=== PATIENT | female | born 1980 | race Caucasian/White ===

== ENCOUNTER → 2017-09-05 | Outpatient (CLI) | payer MEDICAID | LOC: OD 15:31 | PROVIDERS: ATTEND Midwife | DX: O36.80X0 Pregnancy with inconclusive fetal viability, not applicable or unspecified (principal) | CPT/HCPCS: 36415; 84702 ==

== ENCOUNTER 2019-09-21 18:44 | Inpatient (IN) | payer MEDICAID ==
[2019-09-21 19:41] LABS: APPEARANCE,URINE CLEAR; BILIRUBIN,URINE NEGATIVE (NEGATIVE); COLOR,URINE YELLOW; GLUCOSE, URINE NEGATIVE (NEGATIVE); KETONES,URINE NEGATIVE (NEGATIVE); LEUKOCYTE ESTERASE,URINE NEGATIVE (NEGATIVE); NITRITE,URINE NEGATIVE (NEGATIVE); PROTEIN,URINE NEGATIVE (NEGATIVE); URINE SPECIFIC GRAVITY 1.014; UROBILINOGEN,URINE NEGATIVE mg/dL (<2.0)
[2019-09-21 19:55] LABS: URINE AMPHETAMINES SCREEN NEGATIVE; URINE BARBITURATES SCREEN NEGATIVE; URINE BENZODIAZEPINES SCREEN NEGATIVE; URINE COCAINE SCREEN NEGATIVE; URINE MARIJUANA (THC) SCREEN NEGATIVE; URINE METHADONE SCREEN NEGATIVE; URINE PHENCYCLIDINE SCREEN NEGATIVE
[2019-09-21] MEDS ORDERED: RINGERS SOLUTION,LACTATED 1,000 ML IV PRN (20:00)
[2019-09-21] MEDS ORDERED: FENTANYL/BUPIVACAINE/NS/PF 300 MCG/150 ML RTUINJ EPI ONE (20:31)
[2019-09-21] MEDS ORDERED: MISOPROSTOL 0.2 MG TABLET ONE (20:31)
[2019-09-21] MEDS ORDERED: EPHEDRINE SULFATE INJ 50 MG/1 ML AMPULE ONE (20:31)
[2019-09-21] MEDS ORDERED: LIDOCAINE 1% INJ-PF (10 MG/ML) 30 ML SDV ONE (20:31)
[2019-09-21] MEDS ORDERED: OXYTOCIN 10 UNIT/ML VIAL ONE (20:31)
[2019-09-21] MEDS ORDERED: BUPIVACAINE HCL 0.25 % INJ/PF (2.5 MG/1 ML) 30 ML VIAL ONE (20:32)
[2019-09-21] MEDS ORDERED: OXYTOCIN/NORMAL SALINE 20 UNIT/1,000 ML RTUINJ ONE (20:32)
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
[2019-09-21 20:40] LABS: ABSOLUTE BASOPHILS # (AUTO) 0.1 10^3/uL (0.0-0.2); ABSOLUTE EOSINOPHILS # (AUTO) 0.1 10^3/uL (0.0-0.6); ABSOLUTE LYMPHOCYTES (AUTO) 1.8 10^3/uL (0.5-4.7); ABSOLUTE MONOCYTES (AUTO) 0.7 10^3/uL (0.1-1.4); ABSOLUTE NEUT (AUTO) 11.3 10^3/uL (1.7-8.2); BASOPHILS % (AUTO) 0.4 % (0-2); EOSINOPHILS % (AUTO) 0.5 % (0-6); HEMATOCRIT 30.9 % (36.0-47.0); LYMPHOCYTES % (AUTO) 12.7 % (13-45); MEAN CORPUSCULAR HEMOGLOBIN 30.5 pg (27.0-33.4); MEAN CORPUSCULAR HGB CONC 35.7 g/dL (32.0-36.0); MEAN CORPUSCULAR VOLUME 86 fl (80-97); MONOCYTES % (AUTO) 5.3 % (3-13); PLATELET COUNT 200 10^3/uL (150-450); RED BLOOD COUNT 3.62 10^6/uL (3.72-5.28); RED CELL DISTRIBUTION WIDTH 15.4 % (11.5-14.0); SEGMENTED NEUTROPHILS % (AUTO) 81.1 % (42-78); TOTAL CELLS COUNTED % (AUTO) 100 %; WHITE BLOOD COUNT 13.9 10^3/uL (4.0-10.5)
[2019-09-21] MEDS ORDERED: ACETAMINOPHEN 650 MG SUPP.RECT PR PRN (22:20)
[2019-09-21] MEDS ORDERED: PROMETHAZINE HCL 25 MG SUPP.RECT PR PRN (22:20)
[2019-09-21] MEDS ORDERED: PSEUDOEPHEDRINE HCL 30 MG TABLET PO PRN (22:20)
[2019-09-21] MEDS ORDERED: PROMETHAZINE HCL INJ 25 MG/1 ML VIAL IV PRN (22:20)
[2019-09-21] MEDS ORDERED: MEASLES,MUMPS&RUBELLA VACC/PF 0.5 ML VIAL SUBCUT PRN (22:20)
[2019-09-21] MEDS ORDERED: GLYCERIN/WITCH HAZEL LEAF 1 EACH MED..WIPE TP PRN (22:20)
[2019-09-21] MEDS ORDERED: NA PHOS,M-B/NA PHOS,DI-BA (ADULT) 133 ML ENEMA PR PRN (22:20)
[2019-09-21] MEDS ORDERED: PROMETHAZINE HCL 25 MG TABLET PO PRN (22:20)
[2019-09-21] MEDS ORDERED: DIPH/PERTUSS(ACELL)/TETANUS VAC/PF 0.5 ML SYR (>=10YO) IM PRN (22:20)
[2019-09-21] MEDS ORDERED: DIPHENHYDRAMINE HCL 25 MG CAPSULE PO PRN (22:20)
[2019-09-21] MEDS ORDERED: ZOLPIDEM TARTRATE 5 MG TABLET PO PRN (22:20)
[2019-09-21] MEDS ORDERED: DIBUCAINE 1% OINTMENT 28 GM TP PRN (22:20)
[2019-09-21] MEDS ORDERED: OXYTOCIN/NORMAL SALINE 20 UNIT/1,000 ML RTUINJ IV PRN (22:20)
[2019-09-21] MEDS ORDERED: ACETAMINOPHEN WITH CODEINE #3 TABLET PO PRN (22:20)
[2019-09-21] MEDS ORDERED: MAGNESIUM HYDROXIDE SUSP 30 ML UDCUP PO PRN (22:20)
[2019-09-21] MEDS ORDERED: FAMOTIDINE 20 MG TABLET PO ONE (23:00)
[2019-09-22] MEDS: BENZOCAINE/MENTHOL AEROSOL SPRAY 56 ML TOP PRN ×2 (03:52→09:24)
[2019-09-22] MEDS: IBUPROFEN 800 MG TABLET PO SCH ×3 (05:37→22:21)
[2019-09-22 06:56] LABS: HEMATOCRIT 27.3 % (36.0-47.0); HEMOGLOBIN 9.5 g/dL (12.0-15.5); MEAN CORPUSCULAR HEMOGLOBIN 29.7 pg (27.0-33.4); MEAN CORPUSCULAR HGB CONC 34.8 g/dL (32.0-36.0); MEAN CORPUSCULAR VOLUME 85 fl (80-97); PLATELET COUNT 228 10^3/uL (150-450); RED CELL DISTRIBUTION WIDTH 15.7 % (11.5-14.0); WHITE BLOOD COUNT 20.3 10^3/uL (4.0-10.5)
[2019-09-22] MEDS: SENNOSIDES/DOCUSATE 8.6-50 MG 1 EACH TABLET PO SCH (09:17)
[2019-09-22] MEDS: DOCUSATE SODIUM 100 MG CAPSULE PO SCH ×2 (09:17→17:33)
[2019-09-22] MEDS: PRENATAL VITAMIN W DHA CAPSULE PO SCH (09:18)
[2019-09-22] MEDS: FERROUS SULFATE 325 MG TABLET PO SCH ×2 (09:18→17:33)
[2019-09-22] MEDS: FAMOTIDINE 20 MG TABLET PO SCH ×2 (09:18→22:21)
--- NOTE | 2019-09-22 11:05 | PDOC PROGRESS REPORT ---
Subjective-OB Progress Note for:: 09/22/19 Subjective: reports bleeding slowing, pain controlled with current meds. denies needs. Physical Exam (OB) Vital Signs: Temp Pulse Resp BP Pulse Ox 97.8 F 108 H 16 133/80 H 100 09/22/19 07:51 09/22/19 07:51 09/22/19 07:51 09/22/19 07:51 09/22/19 07:51 Intake & Output 09/21/19 09/22/19 09/23/19 06:59 06:59 06:59 Intake Total 480 Balance 480 Weight 93 kg - Abdomen Description: Soft Hernia Present: No Fundal Description: Firm, Midline Fundal Height: u/u - u/2 - Abdominal Distension: No distension Tenderness: Nontender - Extremities Lower extremities: Bradford's sign - neg Calf: Normal, Nontender Objective-Diagnostic Laboratory: 09/22/19 06:31 09/21/19 09/21/19 09/21/19 18:55 20:20 20:20 WBC 13.9 H RBC 3.62 L Hgb 11.0 L Hct 30.9 L MCV 86 MCH 30.5 MCHC 35.7 RDW 15.4 H Plt Count 200 Seg Neutrophils % 81.1 H Urine Color YELLOW Urine Appearance CLEAR Urine pH 6.0 Ur Specific [place] 1.014 Urine Protein NEGATIVE Urine Glucose (UA) NEGATIVE Urine Ketones NEGATIVE Urine Blood MODERATE H Urine Nitrite NEGATIVE Ur Leukocyte Esterase NEGATIVE Blood Type O POSITIVE Antibody Screen NEGATIVE 09/22/19 06:31 WBC 20.3 H RBC 3.20 L Hgb 9.5 L Hct 27.3 L MCV 85 MCH 29.7 MCHC 34.8 RDW 15.7 H Plt Count 228 Seg Neutrophils % Urine Color Urine Appearance Urine pH Ur Specific [place] Urine Protein Urine Glucose (UA) Urine Ketones Urine Blood Urine Nitrite Ur Leukocyte Esterase Blood Type Antibody Screen Assessment and Plan(PN) - Time Spent with Patient Time with patient: Less than 15 minutes Medications reviewed and adjusted accordingly: Yes - Disposition Within: within 24 hours
[2019-09-22] MEDS: ACETAMINOPHEN WITH CODEINE #3 TABLET PO PRN ×2 (11:14→17:38)
[2019-09-23] MEDS: IBUPROFEN 800 MG TABLET PO SCH ×2 (06:28→13:13)
[2019-09-23 06:45] LABS: ABSOLUTE BASOPHILS # (AUTO) 0.1 10^3/uL (0.0-0.2); ABSOLUTE EOSINOPHILS # (AUTO) 0.2 10^3/uL (0.0-0.6); ABSOLUTE LYMPHOCYTES (AUTO) 2.5 10^3/uL (0.5-4.7); ABSOLUTE MONOCYTES (AUTO) 0.7 10^3/uL (0.1-1.4); ABSOLUTE NEUT (AUTO) 9.1 10^3/uL (1.7-8.2); BASOPHILS % (AUTO) 0.7 % (0-2); EOSINOPHILS % (AUTO) 1.8 % (0-6); HEMOGLOBIN 8.7 g/dL (12.0-15.5); LYMPHOCYTES % (AUTO) 19.6 % (13-45); MEAN CORPUSCULAR HEMOGLOBIN 29.8 pg (27.0-33.4); MEAN CORPUSCULAR VOLUME 85 fl (80-97); MONOCYTES % (AUTO) 5.2 % (3-13); PLATELET COUNT 217 10^3/uL (150-450); RED BLOOD COUNT 2.93 10^6/uL (3.72-5.28); RED CELL DISTRIBUTION WIDTH 15.5 % (11.5-14.0); SEGMENTED NEUTROPHILS % (AUTO) 72.7 % (42-78); TOTAL CELLS COUNTED % (AUTO) 100 %; WHITE BLOOD COUNT 12.5 10^3/uL (4.0-10.5)
[2019-09-23] MEDS: PRENATAL VITAMIN W DHA CAPSULE PO SCH (11:18)
[2019-09-23] MEDS: SENNOSIDES/DOCUSATE 8.6-50 MG 1 EACH TABLET PO SCH (11:19)
[2019-09-23] MEDS: FAMOTIDINE 20 MG TABLET PO SCH (11:19)
[2019-09-23] MEDS: DOCUSATE SODIUM 100 MG CAPSULE PO SCH (11:19)
[2019-09-23] MEDS: FERROUS SULFATE 325 MG TABLET PO SCH (11:23)
--- NOTE | 2019-09-23 12:34 | PDOC DISCHARGE SUMMARY ---
Impression - Admit/DC Date/PCP Admission Date/Primary Care Provider: 09/21/19 20:07 FANNIE WING MD Discharge Date: 09/23/19 - Discharge Diagnosis (1) Acute blood loss anemia Is this a current diagnosis for this admission?: Yes (2) Current smoker Is this a current diagnosis for this admission?: Yes (3) Perineal laceration during delivery, delivered Is this a current diagnosis for this admission?: Yes (4) Delivery normal Is this a current diagnosis for this admission?: Yes - Assessment Summary: 38yo G5 now P4 s/p ppd2 stable and ready for discharge. Understands warning s/s and reasons to rtc/[facility] - Additional Information Resuscitation Status: Full Code Discharge Diet: As Tolerated, Regular Discharge Activity: Activity As Tolerated, Balance Activity w/Rest, No Lifting Over 10 Pounds, Pelvic Rest, No tub bath, Walk Frequently Referrals: FANNIE WING MD [Primary Care Provider] - Prescriptions: Ibuprofen [Motrin 800 mg Tablet] 800 mg PO Q8HP PRN #20 tablet PRN Reason: Docusate Sodium [Colace 100 mg Capsule] 100 mg PO BID #60 capsule Ferrous Sulfate [Feosol 325 mg Tablet] 325 mg PO BID #60 tablet Home Medications: Vit/Iron Fum/Folic AC [ Tablet] 1 each PO DAILY 01/09/16 Ferrous Sulfate [Feosol 325 mg Tablet] 325 mg PO BID #60 tablet 02/14/16 Albuterol Sulfate [Ventolin Hfa 8 gm Mdi (1 Mdi/ER Disp)] 8 gm NASL PRN PRN 09/21/19 Docusate Sodium [Colace 100 mg Capsule] 100 mg PO BID #60 capsule 09/23/19 Ferrous Sulfate [Feosol 325 mg Tablet] 325 mg PO BID #60 tablet 09/23/19 Ibuprofen [Motrin 800 mg Tablet] 800 mg PO Q8HP PRN #20 tablet 09/23/19 Vit/Dha [ Multi + Dha Capsule] 1 cap PO DAILY capsule 09/23/19 Results Laboratory Results: WBC 12.5 10^3/uL (4.0-10.5) H 09/23/19 06:13 RBC 2.93 10^6/uL (3.72-5.28) L 09/23/19 06:13 Hgb 8.7 g/dL (12.0-15.5) L 09/23/19 06:13 Hct 25.0 % (36.0-47.0) L 09/23/19 06:13 MCV 85 fl (80-97) 09/23/19 06:13 MCH 29.8 pg (27.0-33.4) 09/23/19 06:13 MCHC 35.0 g/dL (32.0-36.0) 09/23/19 06:13 RDW 15.5 % (11.5-14.0) H 09/23/19 06:13 Plt Count 217 10^3/uL (150-450) 09/23/19 06:13 Lymph % (Auto) 19.6 % (13-45) 09/23/19 06:13 [place] % (Auto) 5.2 % (3-13) 09/23/19 06:13 Eos % (Auto) 1.8 % (0-6) 09/23/19 06:13 Baso % (Auto) 0.7 % (0-2) 09/23/19 06:13 Absolute Neuts (auto) 9.1 10^3/uL (1.7-8.2) H 09/23/19 06:13 Absolute Lymphs (auto) 2.5 10^3/uL (0.5-4.7) 09/23/19 06:13 Absolute Monos (auto) 0.7 10^3/uL (0.1-1.4) 09/23/19 06:13 Absolute Eos (auto) 0.2 10^3/uL (0.0-0.6) 09/23/19 06:13 Absolute Basos (auto) 0.1 10^3/uL (0.0-0.2) 09/23/19 06:13 Seg Neutrophils % 72.7 % (42-78) 09/23/19 06:13 Urine Color YELLOW 09/21/19 18:55 Urine Appearance CLEAR 09/21/19 18:55 Urine pH 6.0 (5.0-9.0) 09/21/19 18:55 Ur Specific [place] 1.014 09/21/19 18:55 Urine Protein NEGATIVE mg/dL (NEGATIVE) 09/21/19 18:55 Urine Glucose (UA) NEGATIVE mg/dL (NEGATIVE) 09/21/19 18:55 Urine Ketones NEGATIVE mg/dL (NEGATIVE) 09/21/19 18:55 Urine Blood MODERATE (NEGATIVE) H 09/21/19 18:55 Urine Nitrite NEGATIVE (NEGATIVE) 09/21/19 18:55 Urine Bilirubin NEGATIVE (NEGATIVE) 09/21/19 18:55 Urine Urobilinogen NEGATIVE mg/dL (<2.0) 09/21/19 18:55 Ur Leukocyte Esterase NEGATIVE (NEGATIVE) 09/21/19 18:55 Urine Ascorbic Acid NEGATIVE (NEGATIVE) 09/21/19 18:55 Membranes Rupture POSITIVE (NEGATIVE) H 09/21/19 19:17 Urine Opiates Screen NEGATIVE 09/21/19 18:55 Urine Methadone Screen NEGATIVE 09/21/19 18:55 Ur Barbiturates Screen NEGATIVE 09/21/19 18:55 Ur Phencyclidine Scrn NEGATIVE 09/21/19 18:55 Ur Amphetamines Screen NEGATIVE 09/21/19 18:55 U Benzodiazepines Scrn NEGATIVE 09/21/19 18:55 Urine Cocaine Screen NEGATIVE 09/21/19 18:55 U Marijuana (THC) Screen NEGATIVE 09/21/19 18:55 RPR NONREACTIVE (NONREACTIVE) 09/21/19 20:20 Blood Type O POSITIVE 09/21/19 20:20 Antibody Screen NEGATIVE 09/21/19 20:20
[2019-09-23 12:44] VITALS: BP 133/80
[2019-09-23] MEDS: BENZOCAINE/MENTHOL AEROSOL SPRAY 56 ML TOP PRN (13:13)
--- NOTE | 2019-09-24 15:05 | Delivery Summary ---
Del Sum A-C Datetime Report Generated by CPN: 09/24/2019 15:05 DELIVERY PERSONNEL DELIVERY PERSONNEL: [id number] Delivery Doctor:: Lynn Lundberg MD Labor and Delivery Nurse:: Lindsey Gallo RN Metallurgical Technician/BASKETBALL SCOUT: Rosalie Green, ST MATERNAL INFORMATION Delivery Anesthesia: Epidural Medications After Delivery: Pitocin Drip 20 Units/1000ml NSS Delivery QBL: 300 Maternal Complications: None Provider Comments: Called to patients room complete and +2 station. Patient pushed through a few contractions and delivered a viable male infant. After delivery of the head, a nuchal cord x 1 was noted and not able to be reduced. She delivered through without difficulty. Infant vigorous at delivery and cord clamping delayed for approximately 30 seconds. Infant to mothers chest and both stable. LABOR SUMMARY EDC: 09/25/2019 00:00 No. Babies in Womb: 1 Attempted: No Labor Anesthesia: Epidural LABOR INFORMATION Reason for Induction: Not Applicable Onset of Labor: 09/21/2019 16:00 Complete Dilatation: 09/21/2019 22:44 Oxytocin: N/A Group B Beta Strep: negative Antibiotics # of Doses: 0 Antibiotics Time of Last Dose: N/A Name of Antibiotic Given: N/A Steroids Given: None Reason Steroids Not Administered: Not Applicable MEMBRANES Membranes Rupture Method: Spontaneous Rupture of Membranes: 09/21/2019 16:00 Length of Rupture (hr): 6.97 Amniotic Fluid Color: Clear (Annotations: no fluid noted) Amniotic Fluid Amount: Small Amniotic Fluid Odor: Normal STAGES OF LABOR Stage 1 hr: 6 Stage 1 min: 44 Stage 2 hr: 0 Stage 2 min: 14 Stage 3 hr: 0 Stage 3 min: 4 Total Time in Labor hr: 7 Total Time in Labor min: 2 VAGINAL DELIVERY Episiotomy: None Laceration #1: Periurethral Laceration Extension #1: First Degree Laceration Extension #2: First Degree Other Laceration: #2 labial laceration on left Laceration Repair: Yes Laceration Repair Note: Both repaired with 2-0 chromic in a layered closure Sponge Count Correct: Yes Sharps Count Correct: Yes CSECTION DELIVERY Primary Indication: N/A Secondary Indication: N/A CSection Incidence: N/A Labor: N/A Elective: N/A BABY A INFORMATION Delivery Date/Time: 09/21/2019 22:58 Method of Delivery: Vaginal Method of Delivery: Vaginal Method of Delivery: Vaginal Nurse Controlled Delivery: No Born in Route : No : N/A Forceps: N/A Vacuum Extraction: N/A Shoulder Dystocia : No PRESENTATION/POSITION BABY A Presentation: Cephalic Presentation: Cephalic Cephalic Presentation: Vertex Vertex Position: Occipital Anterior Breech Presentation: N/A PLACENTA INFORMATION BABY A Placenta Delivery Time : 09/21/2019 23:02 Placenta Method of Delivery: Spontaneous Placenta Method of Delivery: Spontaneous Placenta Status: Delivered SCORES BABY A Heart Rate 1 min: >100 bpm Resp Effort 1 min: Good Cry Reflex Irritability 1 min: Cough or Sneeze or Pulls Away Muscle Tone 1 min: Active Motion Color 1 min: Body [place], Extremities Blue SCORE 1 MIN: 9 Heart Rate 5 min: >100 bpm Resp Effort 5 min: Good Cry Reflex Irritability 5 min: Cough or Sneeze or Pulls Away Muscle Tone 5 min: Active Motion Color 5 min: Body [place], Extremities Blue SCORE 5 MIN: 9 INFORMATION BABY A Gestational Age at Delivery: 39.3 Gestational Status: Full Term- 39- 40.6 Weeks Outcome : Liveborn Condition : Stable Infant Sex: Male Infant Sex: Male Sex: Male IDENTIFICATION BABY A Verification Date/Time: 09/21/2019 23:14 ID Band Number: [id number] Mother's Name Verified: Yes RN Verifying : Derik SamuelKathryn TOMAS Additional Verifying Personnel: Seismo-ShelfKathryn RN WEIGHT/LENGTH BABY A Infant Birthweight (gm): 3418 Infant Weight (lb): 7 Infant Weight (oz): 9 Length (in): 20.00 (Annotations: Data stored by [facility] on behalf of user) Infant Length (cm): 50.80 CORD INFORMATION BABY A No. Cord Vessels: 3 Nuchal Cord : Around Neck x1, Loose Cord Blood Taken: Yes-For Storage (Mom's Blood type +) Suction: Mouth ASSESSMENT BABY A Complications: None Physical Findings at Delivery: Within Normal Limits Physical Findings- Other: See full nursery liner replacer Respirations: Appears Normal Skin to Skin: Yes Skin to Skin: Yes Skin to Skin: Yes Skin to Skin: Yes Skin to Skin: Yes Skin to Skin: Yes Skin to Skin: Yes Skin to Skin: Yes Diesel Engine Erector/ALS Called : No Infant Care By: Sammie Samuel RN Transferred To: Remains with Mother BABY B INFORMATION : N/A SIGNATURES Signature: with User ID: [email or web address] : with User ID: [email or web address]
== END 2019-09-23 14:02 | disposition home or self-care (01) | DRG 806 ==
LOC: LC 18:44 → LR 20:07 → 2S 09-22 01:14
PROVIDERS: ADMIT Obstetrics & Gynecology; ATTEND Obstetrics & Gynecology
PROC: 10E0XZZ Delivery of Products of Conception, External Approach (ICD-10-PCS; principal; 2019-09-21)
PROC: 0HQ9XZZ Repair Perineum Skin, External Approach (ICD-10-PCS; 2019-09-21)
PROC: 0UQMXZZ Repair Vulva, External Approach (ICD-10-PCS; 2019-09-21)
PROC: 3E0234Z Introduction of Serum, Toxoid and Vaccine into Muscle, Percutaneous Approach (ICD-10-PCS; 2019-09-23)
DX: O99.334 Smoking (tobacco) complicating childbirth (principal); D62 Acute posthemorrhagic anemia; Z37.0 Single live birth; F17.210 Nicotine dependence, cigarettes, uncomplicated; O99.52 Diseases of the respiratory system complicating childbirth; O99.02 Anemia complicating childbirth; O69.81X0 Labor and delivery complicated by cord around neck, without compression, not applicable or unspecified; O71.82 Other specified trauma to perineum and vulva; O70.0 First degree perineal laceration during delivery; J45.909 Unspecified asthma, uncomplicated; Z79.51 Long term (current) use of inhaled steroids; Z3A.39 39 weeks gestation of pregnancy; Z87.820 Personal history of traumatic brain injury; Z23 Encounter for immunization
CPT/HCPCS: 36415; 80307; 81005; 84112; 85025; 85027; 86592; 86850; 86900; 86901; 87086; 90715; 94760; J2590; J3010; J3490